=== PATIENT | female | born 1995 | race Caucasian/White ===

== ENCOUNTER 2016-08-28 16:13 | Emergency (ER) | payer OTHER ==
[2016-08-28 16:39] VITALS: BP 125/90; PULSE 88; RESP 16; TEMP 97.9; O2SAT 95
--- NOTE | 2016-08-28 16:44 | UCPHY ---
H & P Patient Type: Established Chief Complaint Nursing Narrative: laceration to left second finger with kitchen knife. Time Seen by Provider: 08/28/16 16:28 HPI/ROS: Chief complaint finger laceration HPI: 21-year-old female was cutting onions of 4 o'clock this afternoon which she sustained a laceration to the tip of her left ring finger. Patient does not recall her last tetanus. Denies any other injuries. She has been applying direct pressure to control the bleeding. ROS: 10 point Review of Systems is negative except as noted in the HPI. Physical exam: General: Awake, alert, no acute distress Left hand: She has a partial tip avulsion of her left ring finger. There is no nail or nail bed involvement. The flap is viable with a total curved laceration length of 1 cm. She has full flexion extension of that digit. There is no tendon involvement. Sensations intact. Cap refills less than 2 seconds. - Personal History LMP (Females 10-55): 22-28 Days Ago - Medical/Surgical History Hx Asthma: No Hx Chronic Respiratory Disease: No Hx Diabetes: No Hx Cardiac Disease: No Hx Renal Disease: No Hx Cirrhosis: No Hx Alcoholism: No Hx HIV/AIDS: No Hx Splenectomy or Spleen Trauma: No Other PMH: none - Family History Significant Family History: No pertinent family hx - Social History Smoking Status: Never smoked Constitutional: Initial Vital Signs Temperature (C) 36.6 C 08/28/16 16:37 Heart Rate 88 08/28/16 16:37 Respiratory Rate 16 08/28/16 16:37 Blood Pressure 125/90 H 08/28/16 16:37 O2 Sat (%) 95 08/28/16 16:37 O2 Delivery Mode Room Air Allergies/Adverse Reactions: No Known Allergies Allergy (Verified 07/17/16 09:21) Home Medications: Medication Instructions Recorded Prozac 20 MG (RX) 10/03/15 Medical Decision Making ED Course/Re-evaluation: Procedure: Regional anesthesia. A digital nerve block of the left ring finger was performed for laceration repair. The block was performed with Marcaine. The patient experienced excellent anesthesia. The procedure was performed by myself. Procedure: Laceration repair. Verbal consent was obtained from the patient. The 1 cm laceration on the left ring finger was anesthetized in the usual fashion. The wound was irrigated, draped and explored to its base with a gloved finger. There were no deep structures involved. No tendon injury was identified. The wound was repaired with 3, 5-0 simple interrupted Ethilon sutures. The wound repair was uncomplicated. The procedure was performed by myself. Departure - Departure Disposition: Home, Routine, Self-Care Clinical Impression: Finger laceration Condition: Good Instructions: Care For Your Stitches (ED), Finger Laceration (ED), Diphtheria/ Acellular Pertussis/Tetanus Booster Vaccine (By injection) Additional Instructions: Sutures need to be removed in about 7 days. Keep the area clean and dry. Return to Urgent Care for increasing redness, increasing pain, pus or discharge from the wound, or other concerns. [place]errals[place],. [Primary Care Provider] - As per Instructions - PQRS PQRS Measurement: NA
[2016-08-28] MEDS ORDERED: TDAP ADULT 0.5 ML INJ (BOOSTRIX) IM ONE (17:36)
== END 2016-08-28 17:59 | disposition home or self-care (01) ==
LOC: CED 16:13
PROC: 0HQGXZZ Repair Left Hand Skin, External Approach (ICD-10-PCS; principal; 2016-08-28)
DX: S61.215A Laceration without foreign body of left ring finger without damage to nail, initial encounter (principal); W26.0XXA Contact with knife, initial encounter; Y92.010 Kitchen of single-family (private) house as the place of occurrence of the external cause; Y93.G1 Activity, food preparation and clean up
CPT/HCPCS: G0463-PO